=== PATIENT | female | born 1960 | race Caucasian/White ===

== ENCOUNTER 2016-06-01 09:07 | Outpatient (CLI) ==
--- NOTE | 2016-06-01 09:40 | DI ---
Exam: Three views left third finger. Clinical indication: Cellulitis involving the left distal finger. Findings / impression: There is some mild soft tissue swelling. 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 Otherwise, there are no fractures, dislocations or other significant bony abnormalit ies. There is no radiographic evidence of osteomyelitis.
== END 2016-06-01 09:08 | disposition home or self-care (01) ==
LOC: RAD 09:07
PROVIDERS: ATTEND Nurse Practitioner Family
DX: L03.012 Cellulitis of left finger (principal)

== ENCOUNTER 2017-02-18 11:20 | Outpatient (CLI) ==
[2017-02-18 11:51] LABS: BILIRUBIN,URINE Negative (NEGATIVE); KETONES,URINE Negative (NEGATIVE); LEUKOCYTE ESTERASE ,URINE Trace (NEGATIVE); NITRITE,URINE Negative (NEGATIVE); PROTEIN,URINE Negative (NEGATIVE); URINE, BLOOD 2+ (NEGATIVE)
[2017-02-18 12:01] LABS: ADD URINE MICROSCOPIC YES
[2017-02-18 12:19] LABS: BACTERIA,URINE TRACE (NOT PRESENT)
[2017-02-18 16:15] LABS: BILIRUBIN,URINE Negative (NEGATIVE); KETONES,URINE Negative (NEGATIVE); LEUKOCYTE ESTERASE ,URINE Negative (NEGATIVE); NITRITE,URINE Negative (NEGATIVE); PROTEIN,URINE Negative (NEGATIVE); URINE, BLOOD 2+ (NEGATIVE)
[2017-02-18 16:19] LABS: ADD URINE MICROSCOPIC YES
[2017-02-18 16:21] LABS: BACTERIA,URINE 2+ (NOT PRESENT)
== END 2017-02-18 11:21 | disposition home or self-care (01) ==
LOC: LAB 11:20
PROVIDERS: ATTEND General Practice
DX: R31.9 Hematuria, unspecified (principal); R35.0 Frequency of micturition; R30.0 Dysuria
CPT/HCPCS: 81001; 87086; 87186

== ENCOUNTER 2017-06-23 08:28 | Outpatient (CLI) | END 2017-06-23 08:29 | disposition home or self-care (01) | LOC: LAB 08:28 | PROVIDERS: ATTEND Neuromusculoskeletal Medicine & OMM | DX: G25.81 Restless legs syndrome (principal) | CPT/HCPCS: 36415; 82728; 83540; 83550 ==

== ENCOUNTER 2018-01-25 11:04 | Outpatient (CLI) ==
--- NOTE | 2018-01-25 11:34 | DI ---
EXAM: Five views of the cervical spine. History: Cervicalgia. Findings: No acute fracture or subluxation of the cervical spine. No prevertebral soft tissue swell ing. Predental space is not widened. Mild to moderate disc space narrowing at C5-6 with endplate sc lerosis and prominent anterior osteophytes. The oblique images demonstrate multilevel bilateral bony neural foraminal narrowing secondary to uncovertebral and facet hypertrophy probably most significan t on the left at C3-4 and C4-5. Impression: 1. No acute osseous abnormality of the cervical spine. 2. Degenerative changes. If symptoms persist, recommend correlation with MRI of the cervical spine.
== END 2018-01-25 11:05 | disposition home or self-care (01) ==
LOC: RAD 11:04
PROVIDERS: ATTEND General Practice
DX: M54.2 Cervicalgia (principal)

== ENCOUNTER 2018-06-13 11:42 | Outpatient (CLI) ==
--- NOTE | 2018-06-13 12:29 | DI ---
EXAM: CHEST FRONTAL AND LATERAL VIEWS HISTORY: Cough. COMPARISON: 06/19/2015 FINDINGS: Heart size and mediastinal contour remain within normal limits. There is diffuse, chron ic appearing interstitial accentuation. Lungs are hyperinflated and there is relative lucency of the lung zones suggesting pulmonary emphysema. No acute infiltrates are seen. No vascular congestion. There is no consolidation, visible pleural fluid or pneumothorax. Bones reveal no acute fracture. IMPRESSION: Probable component chronic obstructive pulmonary disease, correlate clinically. No acu te infiltrates.
== END 2018-06-13 11:43 | disposition home or self-care (01) ==
LOC: RAD 11:42
PROVIDERS: ATTEND General Practice
DX: R05 Cough (principal)

== ENCOUNTER 2018-06-13 11:57 | Outpatient (CLI) | END 2018-06-13 11:58 | disposition home or self-care (01) | LOC: RHC-LAB 11:57 | PROVIDERS: ATTEND General Practice | DX: J02.9 Acute pharyngitis, unspecified (principal); R05 Cough | CPT/HCPCS: 87502; 87651 ==

== ENCOUNTER 2018-09-13 09:22 | Outpatient (CLI) | END 2018-09-13 09:23 | disposition home or self-care (01) | LOC: CAR 09:22 | PROVIDERS: ATTEND General Practice | DX: R01.1 Cardiac murmur, unspecified (principal) | CPT/HCPCS: 93005; 93010 ==

== ENCOUNTER 2018-09-28 06:31 | Outpatient (CLI) ==
--- NOTE | 2018-09-28 10:03 | STRESSECHO ---
Date of Test: 09/28/18 Ordering Physician: DR. JOE CALVILLO Occupation: UNEMPLOYED Reason for Exam: FATIGUE, ABNORMAL EKG, CAD BY CT SCAN, CHEST TIGHTNESS, SOB Smoking History: 4-5 CIGARETTES/DAY Height: 66" Weight: 152 LBS Current Medications: ASA, GABAPENTIN, CRESTOR, SINEMET, CHANTIX, ATIVAN Resting EKG: SINUS RHYTHM/ NO ACUTE CHANGES Target Heart Rate: 136/161 S-T SEGMENT STAGE MPH/GRADE HEART RATE BPM BLOOD PRESSURE MMHG RHYTHM +/- ELEVATION DEPRESSION SYMPTOMS AT REST 75 BPM 138/76 [facility] SR X NONE 1 1.7/10% 115 BPM 172/76 [facility] SR X NONE 2 2.5/12% 3 3.4/14% 4 4.2/16% 5 5.0/18% Immediately After 137 BPM 194/66 MM[facility] SR X NONE Minutes Post Exercise 2:00 90 BPM 174/80 MMHG SR X NONE Minutes Post Exercise 4:00 80 BPM 142/83 SR X NONE DURATION OF EXERCISE: 6:08 MAXIMUM HEART RATE REACHED: 137 BPM REASON FOR TERMINATION: FATIGUE 92% OXYGEN SATURATION WITH EXERCISE ON ROOM AIR METS 7.2 INTERPRETATION: 1. NO EVIDENCE OF ISCHEMIA BY ST-T WAVE 2. NO CHEST PAIN OR DISCOMFORT 3. RARE PVC'S AT REST AND WITH EXERCISE 4. BLOOD PRESSURE RESPONSE : SYSTOLIC HYPERTENSION WITH EXERCISE NORMAL LEFT VENTRICULAR CONTRACTILITY--RESTING AND POST EXERCISE MTDD
--- NOTE | 2018-10-03 10:33 | ECHOSTRESS ---
Date of Exam: 09/28/18 Ordering Physician: DR. JOE CALVILLO Reason for Echo: SOB, CHEST TIGHTNESS, CAD ABNORMAL EKG, FATIGUE, LUNG NODULE, STRESS TEST--NO ISCHEMIA M-Mode Normal Adult Results LV Dimensions Normal Adult Results AoV Opening excursions >1.6 LVEDD-base- 3.5-5.8 Ao root dimensions 2.0-3.7 LVESD-base- 3.1-4.6 L. Atrium dimensions 1.9-3.8 Post. Wall thickness 0.8-1.1 IV septum (thickness) 0.7-1.2 Post. Wall excursion 0.72-1.3 Septal motion Systolic motion R. Ventricular cavity 1.5-2.0 LVEF 60% Paradoxical septal wall motion 2-D: NORMAL LEFT VENTRICULAR CONTRACTILITY--RESTING AND POST EXERCISE M-MODE: MV: AV: TV: PV: CHAMBER SIZE: WALL MOTION: NORMAL LEFT VENTRICULAR CONTRACTILITY--RESTING AND POST EXERCISE PERICARDIUM: INTERPRETATION: 1. NORMAL LEFT VENTRICULAR CONTRACTILITY--RESTING AND POST EXERCISE MTDD
== END 2018-09-28 06:32 | disposition home or self-care (01) ==
LOC: CAR 06:31
PROVIDERS: ATTEND General Practice
DX: I25.10 Atherosclerotic heart disease of native coronary artery without angina pectoris (principal); R07.89 Other chest pain; R94.31 Abnormal electrocardiogram [ECG] [EKG]; R06.02 Shortness of breath; R53.83 Other fatigue; R91.1 Solitary pulmonary nodule; Z72.0 Tobacco use